=== PATIENT | female | born 1990 | race Caucasian/White ===

== ENCOUNTER 2017-07-06 20:49 | Emergency (ER) | payer OTHER, SELFPAY ==
[2017-07-06 20:51] VITALS: BP 131/77; PULSE 102; RESP 17; TEMP 37.1; O2SAT 99; BMI 33.5
[2017-07-06 21:35] LABS: Absolute Lymphocyte Count 3.49 X10^3/ul (0.83-4.51); Basophil# 0.06 X10^3/uL; Basophil% 0.5 % (0-1); Eosinophil# 0.33 X10^3/uL; Eosinophils% 2.6 % (0-5); Hematocrit 38.2 % (37-47); Hemoglobin 13.2 g/dl (12.0-15.0); Lymphocyte # 3.49 X10^3/ul (4.0); Lymphocyte % 27.9 % (19-41); Mean Corp Hgb Conc 34.6 g/gl (32-36); Mean Corpuscular Hgb 31.4 pg (27.0-32.0); Monocyte# 0.57 X10^3/uL; Monocyte% 4.6 % (0-10); Neutrophil # 8.04 X10^3/uL (2.7-7.7); Neutrophil % 64.2 % (47-70); Platelet Count 345 K/mm3 (150-450); RBC Distribution Width CV 12.4 % (11.6-14.6); White Blood Count 12.5 K/mm3 (4.4-11.0)
[2017-07-06 21:36] LABS: POSITIVE COUNT NO; POSITIVE DIFFERENTIAL NO; POSITIVE MORPHOLOGY NO
--- NOTE | 2017-07-06 21:43 | US_ITS ---
STUDY: FIRST TRIMESTER OBSTETRICAL ULTRASOUND REASON FOR EXAM: Female, 27 years old. , pain LMP: June 02, 2017 TECHNIQUE: Transverse and longitudinal imaging of the pelvis was obtained transvaginally using real-time ultrasound. PRIOR STUDY: None. FINDINGS: There is visualization of a single gestational sac in a normal intrauterine position. The mean sac diameter (MSD) measures 5.7 mm, indicating an estimated gestational age (EGA) of 5 weeks, 1 days. The gestational sac shape is within normal limits. A yolk sac is faintly visualized. The yolk sac measures 1.1 mm. There is no demonstrated embryonic pole. The estimated gestation age (EGA) by LMP is 4 weeks, 6 days. The estimated date of delivery (CHELLE) by LMP is March 09, 2018. The estimated gestation age (EGA) by US is 5 weeks, 1 days. The estimated date of delivery (CHELLE) by US is March 07, 2018. The uterus measures 9.4 x 4.5 x 6.3 cm. There is no demonstrated uterine fibroid. The cervix is closed. The right ovary measures 2.6 x 1.6 x 2.1 cm. There is no right ovarian cyst. There is no visualized right adnexal mass or complex lesion. The left ovary measures 3.7 x 2.2 x 2.3 cm. There is a hypoechoic mass in the left ovary measuring 2.7 x 1.6 x 1.7 cm. There is no visualized left adnexal mass or complex lesion. There is minimal fluid in the cul de sac. US/Transvaginal w/Preg US IMPRESSION: There is a small gestational sac seen in the endometrium with mean sac size of 5.7 mm. An embryonic pole is not visualized, which is within normal limits at this small sac size. There is a corpus luteum cyst in the left ovary measuring 2.7 cm in largest diameter. There is minimal fluid in the pelvis. Electronically Signed: Aliya Meza MD at 23:05 EDT Tel Direct: [phone], Service support ,
--- NOTE | 2017-07-06 21:46 | ED.DCSUM_ITS ---
- ER Visit Summary Date of Service: 07/06/17 Chief Complaint: Left lower quadrant abdominal pain History of Present Illness: The patient is a 27 F resents to the emergency department with left lower quadrant abdominal pain. Patient states that over the past 5-7 days, she has had gradual worsening cramping in her left lower quadrant. She states it worse at night. It is woken up from sleep. She took a test today and was positive. She denies any history of prior ectopic, but states is what she was concerned about. The pain does radiate into her upper back especially when she lays flat. She denies any fevers or chills. She has had no urinary symptoms. She has had nausea without vomiting. Patient has been once before but did not deliver. She does have an appointment with Dr. Annita Saenz on , both her symptoms did not want to wait. Physical Examination: Vital signs reviewed General: Well-nourished, well-developed Head: Normocephalic, atraumatic Eyes: Pupils equal and reactive, extraocular muscles intact Neck, supple, no lymphadenopathy Heart: Regular rate and rhythm Respiratory: No distress, clear bilaterally Abdomen: Soft, mildly tender in the left lower quadrant, nondistended, no peritoneal signs Back: Nontender Extremities: Nontender, no edema, no cords Skin: Normal color no rash Neuro: Alert and oriented, no focal or lateralizing deficits Test Results: [] Emergency Department Course and Treatment: Labs are obtained. The patient was given IV fluids. Her quant was elevated at 2200. Patient underwent ultrasound. There is evidence of intrauterine gestational sac. There is a corpus luteum cyst and mild free fluid in the pelvis. I do feel that the cyst is likely what is causing her pain. There is no evidence of ruptured ectopic or complex mass. Her reevaluation is unremarkable. I do feel that this patient is safe for outpatient therapy. I did patient financial counselor her though that if her pain worsens or anything changes she needs to return immediately for reevaluation. She is comfortable with this plan of care and will be discharged home. Treatment Plan: [] Disposition: Discharge Impression: 1. Intrauterine 2. Left corpus luteum cyst This note was generated with [employer] dictation software. It may contain incorrect words, spelling, and punctuation that were not noted in review of the chart prior to signing ED Disposition - Plan for ED Patient: Chief Complaint: Abd Pain Instructions: ED Abdominal Pain Rule Out Ectopic Prescriptions: Pnv No.122/Iron/Folic Acid [ Multi Tablet] 1 ea PO DAILY #90 tab Referrals: Brent Joya DO [STAFF PHYSICIAN] -
[2017-07-06 21:56] LABS: Anion Gap 7 (5-15); BUN 7 mg/dL (7-18); BUN/Creat Ratio 9.7 RATIO (10-20); Calcium,Total 9.2 mg/dL (8.5-10.1); Chloride 109 mmol/L (98-107); Creatinine, Serum 0.72 mg/dL (0.55-1.02); EST Glomerular Filtration Rate 104 mL/min (>60); Est Glom Filt Rate - Afr Amer 125 mL/min (>60); Estimated Creatinine Clearance 88.56 ml/min; Glucose 86 mg/dL (74-106); Potassium 3.7 mmol/L (3.5-5.1); Sodium Level 139 mmol/L (136-145)
[2017-07-06 21:57] LABS: Bacteria 0 SEEN /hpf (None Seen); Mucous, Urine 0 SEEN /hpf (<or=2+); White Blood Cells 0 SEEN /hpf (0-5)
[2017-07-06] MEDS: 0.9% Normal Saline 1,000 ML 1000 ML IV (22:13)
[2017-07-06 22:16] LABS: Color, Urine Yellow (Yellow); Glucose, Dipstick Normal (Normal); Ketone-Dipstick Negative (Negative); Leukocyte Esterase-Dipstick Negative /ul (Negative); Nitrite-Dipstick Negative (Negative); Occult Blood-Urine 10 /ul (Negative); Protein-Dipstick 15 mg/dl (Negative); Urine Bilirubin Dipstick Negative (Negative); Urine Clarity Clear (Clear); Urine Urobilinogen Normal (Normal)
[2017-07-06 22:16] LABS: hCG Titer Quant., Serum 2232 mIU/mL (<9 non-preg)
[2017-07-06 22:23] LABS: Red Blood Cells-Urine 0-5 SEEN /hpf (0-5); Squamous Epithelial Cells - UA 0-5 SEEN /hpf (5-10)
[2017-07-06 23:45] VITALS: PULSE 72; RESP 18; O2SAT 99
== END 2017-07-06 23:45 | disposition home or self-care (01) ==
PROVIDERS: Emergency Provider Emergency Medicine; Family Provider Family Medicine; PCP Family Medicine
DX: O34.81 Maternal care for other abnormalities of pelvic organs, first trimester (principal); N83.12 Corpus luteum cyst of left ovary; Z3A.01 Less than 8 weeks gestation of pregnancy
CPT/HCPCS: 76817; 80048; 81001; 84702; 85025; 86900; 96360; 99282; J7030; A4216

== ENCOUNTER 2019-11-22 18:02 | Inpatient (IN) | payer OTHER, SELFPAY ==
[2019-11-22 18:04] VITALS: BP 119/78; PULSE 79; RESP 16; TEMP 36.3; O2SAT 98; BMI 35.9
[2019-11-22 18:14] VITALS: BP 109/73; PULSE 90; RESP 18; O2SAT 99
--- NOTE | 2019-11-22 18:27 | ED.DCSUM_ITS ---
History of Present Illness Chief Complaint: Abd Pain Informant: Patient Onset: Hours - 2 hours Context: Sudden Onset Timing: Waxes and wanes Current Severity: Moderate Maximum Severity: Moderate Narrative: Patient presents with a rather abrupt onset of abdominal and back pain 2 hours ago. She points to the left lower quadrant and wraps her hand around to the left side of her back. She is also wraps across to the right lower abdomen. She feels nausea but has not vomited. No recent urinary symptoms. No history of kidney stones in her personally. She did recently take a test that was negative. Past Medical History - Allergies and Home Meds Allergies/Adverse Reactions: Allergies sulfamethoxazole [From Bactrim] Allergy (Verified 11/22/19 18:04) Vomiting trimethoprim [From Bactrim] Allergy (Verified 11/22/19 18:04) Vomiting Primary Care Physician: Ibeth Elizondo COMPLIANCE TESTER, COMPLIANCE TESTER-C [Primary Care Provider] - Past Medical History: - - Sports induced asthma Surgical History: tonsillectomy Lives: With Family Smoking Status: Current some day smoker Review of Systems General: Denies: Chills, Fever Eyes: Denies: Visual changes - bilaterally ENT: Denies: Bilateral ear pain Cardiovascular: Denies: Chest pain Respiratory: Denies: Dyspnea, Cough Gastrointestinal: Reports: Abdominal pain, Nausea. Denies: Vomiting Musculoskeletal: Reports: Back pain Skin: Denies: Rash Neurological: Denies: Headache Hematologic: Denies: Easy bruising, Easy bleeding Allergy: Denies: Uticaria Physical Exam Vital Signs/Narrative: Vital Signs Temp Pulse Resp BP Pulse Ox 11/22/19 18:14 90 18 109/73 99 11/22/19 18:04 97.4 F L 79 16 119/78 98 Inital Vital Signs reviewed: Yes General: Well nourished, Well developed Head: Normocephalic ENT: Moist mucous membranes Neck: Supple Cardiovascular: Regular rate, Regular rhythm Respiratory: No distress, CTA bilaterally Abdomen: Soft, Tender - Left-sided tenderness to palpation., Hypoactive bowel sounds. Negative for: Guarding, Rebound tenderness Back: Negative for: CVA tenderness Extremities: Nontender Skin: Normal color Neurological: Alert, Oriented x3 Psychological: Normal affect Diagnostic/Tx/Re-eval Impressions Abdomen/Pelvis CT 11/22/19 19:30 IMPRESSION: 1. Fatty stranding noted in the region of the pancreatic tail, suspicious for pancreatitis. 2. Colonic diverticulosis with no evidence of associated diverticulitis. 3. There is no evidence of free intra-abdominal or intrapelvic air or fluid. Electronically Signed: Jesús Denis MD at 19:55 EDT , Service support , 11/22/19 19:30 Abdomen/Pelvis without Cont [CT] Stat Laboratory Results 11/22/19 11/22/19 11/22/19 18:35 18:50 18:50 WBC 11.9 H RBC 4.31 Hgb 12.9 Hct 39.1 MCV 90.7 MCH 29.9 MCHC 33.0 RDW Std Deviation 38.9 RDW Coeff of Dave 11.8 Plt Count 392 MPV 10.7 Immature Gran % (Auto) 0.300 Neut % (Auto) 74.3 H Lymph % (Auto) 17.3 L Cross % (Auto) 6.0 Eos % (Auto) 1.3 Baso % (Auto) 0.8 Absolute Neuts (auto) 8.9 H Absolute Lymphs (auto) 2.06 Nucleated RBC % 0 Sodium 141 Potassium 4.6 Chloride 109 H Carbon Dioxide 29.0 Anion Gap 3 L BUN 10 Creatinine 0.80 Estim Creat Clear Calc 78.30 Est GFR (MDRD) Af Amer 109 Est GFR (MDRD) Non-Af 90 BUN/Creatinine Ratio 12.5 Glucose 90 Calcium 9.0 Total Bilirubin Direct Bilirubin AST ALT Alkaline Phosphatase Total Protein Albumin Globulin Lipase Serum , Qual Urine Color Yellow Urine Clarity Clear Urine pH 5.0 Ur Specific [place] 1.025 Urine Protein Negative Urine Glucose (UA) Normal Urine Ketones Negative Urine Occult Blood 10 H Urine Nitrite Negative Urine Bilirubin Negative Urine Urobilinogen Normal Ur Leukocyte Esterase 25 H Urine RBC 0 SEEN Urine WBC 0-5 SEEN Ur Squamous Epith Cells 5-10 SEEN Urine Bacteria 1+ Urine Mucus 0 SEEN 11/22/19 11/22/19 11/22/19 18:50 18:50 18:50 WBC RBC Hgb Hct MCV MCH MCHC RDW Std Deviation RDW Coeff of Dave Plt Count MPV Immature Gran % (Auto) Neut % (Auto) Lymph % (Auto) Cross % (Auto) Eos % (Auto) Baso % (Auto) Absolute Neuts (auto) Absolute Lymphs (auto) Nucleated RBC % Sodium Potassium Chloride Carbon Dioxide Anion Gap BUN Creatinine Estim Creat Clear Calc Est GFR (MDRD) Af Amer Est GFR (MDRD) Non-Af BUN/Creatinine Ratio Glucose Calcium Total Bilirubin 0.20 Direct Bilirubin 0.08 AST 15 ALT 18 Alkaline Phosphatase 67 Total Protein 7.4 Albumin 3.8 Globulin 3.6 Lipase 2607 H Serum , Qual NEGATIVE Urine Color Urine Clarity Urine pH Ur Specific [place] Urine Protein Urine Glucose (UA) Urine Ketones Urine Occult Blood Urine Nitrite Urine Bilirubin Urine Urobilinogen Ur Leukocyte Esterase Urine RBC Urine WBC Ur Squamous Epith Cells Urine Bacteria Urine Mucus - Medical Decision Making Patient was initially just given Toradol and Zofran as she was declining any narcotics. CT scan does reveal some peripancreatic stranding. In light of this lipase is added and is elevated consistent with pancreatitis. At this time patient has agreed to further pain medication will be given a dose of morphine. I will speak with hospitalist regarding admission. ED Disposition - Plan for ED Patient: Disposition: [facility] Diagnosis: Pancreatitis Referrals: Ibeth Elizondo COMPLIANCE TESTER, COMPLIANCE TESTER-C [Primary Care Provider] -
[2019-11-22] MEDS: 0.9% Normal Saline 1,000 ML 150 ML IV (18:46)
[2019-11-22] MEDS: Ketorolac 30 MG/ML Syringe IV (18:46)
[2019-11-22] MEDS: Ondansetron 4 MG/2 ML Vial IV ×2 (18:46→21:39)
[2019-11-22 18:57] LABS: Absolute Lymphocyte Count 2.06 X10^3/uL (0.83-4.51); Absolute Neutrophil Count 8.9 X10^3/uL (2.0-7.7); Basophil# 0.09 X10^3/uL; Basophil% 0.8 % (0-1); Eosinophil# 0.15 X10^3/uL; Eosinophils% 1.3 % (0-5); Hematocrit 39.1 % (37-47); Hemoglobin 12.9 g/dL (12.0-15.0); Lymphocyte # 2.06 X10^3/ul (4.0); Lymphocyte % 17.3 % (19-41); Mean Corpuscular Hgb 29.9 pg (27.0-32.0); Mean Corpuscular Volume 90.7 fL (81-99); Mean Platelet Vol. 10.7 fl (6.2-12.0); Monocyte# 0.71 X10^3/uL; NRBC Flagged by Analyzer 0 % (0-5); Neutrophil # 8.85 X10^3/uL (2.7-7.7); Neutrophil % 74.3 % (47-70); Platelet Count 392 K/mm3 (150-450); RBC Distribution Width CV 11.8 % (11.6-14.6); RBC Distribution Width SD 38.9 fl (35.1-43.9); Red Blood Count 4.31 M/mm3 (4.2-5.4); White Blood Count 11.9 K/mm3 (4.4-11.0)
[2019-11-22 19:05] LABS: Internal QC Validated? YES +Cl - CLEAR BKGD; Pregnancy, Serum, hCG Quali. NEGATIVE Negative
[2019-11-22 19:11] LABS: Anion Gap 3 (5-15); BUN 10 mg/dL (7-18); BUN/Creat Ratio 12.5 RATIO (10-20); Chloride 109 mmol/L (98-107); EST Glomerular Filtration Rate 90 mL/min (>60); Est Glom Filt Rate - Afr Amer 109 mL/min (>60); Glucose 90 mg/dL (74-106); Potassium 4.6 mmol/L (3.5-5.1); Sodium Level 141 mmol/L (136-145)
[2019-11-22 19:13] LABS: Color, Urine Yellow (Yellow); Glucose, Dipstick Normal (Normal); Ketone-Dipstick Negative (Negative); Leukocyte Esterase-Dipstick 25 /ul (Negative); Mucous, Urine 0 SEEN /hpf (<or=2+); Nitrite-Dipstick Negative (Negative); Occult Blood-Urine 10 /ul (Negative); Protein-Dipstick Negative (Negative); Red Blood Cells-Urine 0 SEEN /hpf (0-5); Specific Gravity, Urine 1.025 (1.002-1.030); Urine Bilirubin Dipstick Negative (Negative); Urine Clarity Clear (Clear); Urine Urobilinogen Normal (Normal)
--- NOTE | 2019-11-22 19:30 | CT_ITS ---
STUDY: CT ABDOMEN AND PELVIS WITHOUT CONTRAST REASON FOR EXAM: Female, 29 years old. patient complains of abdomen pain and back pain RADIATION DOSAGE (If Supplied By Facility): CTDIvol = ( 13.33 ) mGy, DLP = ( 657.27 ) mGycm TECHNIQUE: Transaxial images were obtained from the dome of the diaphragm to the symphysis pubis without oral contrast, and without intravenous contrast. Sagittal and coronal images were reconstructed. Individualized dose optimization techniques were used for this CT. COMPARISON: None. FINDINGS: The visualized lung bases are unremarkable. The visualized portions of the heart are within normal limits. Normal liver. Normal gallbladder and extrahepatic biliary system. Normal spleen. There is fatty stranding in the region of the pancreatic tail. Normal bilateral adrenal glands. Normal right kidney. Normal left kidney. Normal visualized stomach. Normal small intestine. There is colonic diverticulosis. There is no evidence of associated diverticulitis. The appendix is visualized and appears normal. Normal abdominal aorta. Normal inferior vena cava. Normal retroperitoneum. Normal urinary bladder. Normal abdominal wall. Normal osseous structures. CT/Abdomen/Pelvis without Cont IMPRESSION: 1. Fatty stranding noted in the region of the pancreatic tail, suspicious for pancreatitis. 2. Colonic diverticulosis with no evidence of associated diverticulitis. 3. There is no evidence of free intra-abdominal or intrapelvic air or fluid. Electronically Signed: Jesús Denis MD at 19:55 EDT , Service support ,
[2019-11-22 19:33] LABS: Bacteria 1+ /hpf (None Seen); Squamous Epithelial Cells - UA 5-10 SEEN /hpf (5-10)
[2019-11-22 19:34] LABS: White Blood Cells 0-5 SEEN /hpf (0-5)
[2019-11-22 20:10] VITALS: BP 111/89; PULSE 74; RESP 15; O2SAT 100
[2019-11-22 20:38] LABS: AST(SGOT) 15 U/L (15-37); Alanine Aminotransfer ALT/SGPT 18 U/L (13-56); Albumin, Serum 3.8 g/dL (3.2-5.0); Alkaline Phosphatase 67 U/L (45-117); Bilirubin, Direct 0.08 mg/dL (0.00-0.30); Globulin 3.6 g/dL (2.2-4.2); Protein, Total 7.4 g/dL (6.4-8.2)
[2019-11-22 21:01] LABS: Lipase 2607 U/L (73-393)
[2019-11-22] MEDS: Morphine 4 MG/ML Syringe IV ×2 (21:38→23:48)
[2019-11-22] MEDS: 0.9% Normal Saline 1,000 ML 999 ML IV ×2 (21:38→22:57)
[2019-11-22 21:47] VITALS: BP 134/79; PULSE 74; RESP 15; TEMP 36.8; O2SAT 98
--- NOTE | 2019-11-22 21:50 | PCM.HP.STD ---
Problem List (1) Pancreatitis Status: Acute (2) Exercise-induced asthma Status: Chronic (3) Vapes nicotine containing substance Status: Chronic (4) Tobacco use Status: Chronic (5) Obesity (BMI 30-39.9) Status: Chronic History of Present Illness Date of Admission: 11/22/19 Chief Complaint: Abdominal pain, back pain The patient is a 29 y/o F w/ PMHx: Obesity, Tobacco use, Exercise-induced Asthma who presents to the [facility] ED on 11/22/19 with history of sudden onset sharp stabbing 9 of 10 in severity initially left lower quadrant abdominal discomfort with radiation to bilateral flanks eventually wrapping around towards her lower chest bilaterally with nausea without emesis with last bowel movement approximately 2 days prior noted to be normal with no recent diarrhea however not improving with last meal intake lunch on day of ED presentation noted to be Rubio's, not improving prompting eventual ED presentation. In the ED patient did note that she checked a test at home secondary to concerns that she potentially was however this was negative. She notes following pain regimen in the ED her discomfort improved to 7 out of 10 in severity. She notes the discomfort is even worsened by movements. She states she has been unable to eat anything or have any oral intake since. In the ED upon evaluation on examination patient with significant right upper quadrant and epigastric discomfort with palpation. Work-up in the ED included T 97.4, heart 79, BP 119/78, respiratory rate 16, 98% on room air, WBC 11.9, hemoglobin 12.9, platelet 392 with left shift, CMP with chloride 109 otherwise not marked appearing, unremarkable liver function studies, lipase 2607, negative serum testing, urinalysis only notable for elevated specific gravity 1.025 as well as occult blood 10, leukocyte esterase 25, negative nitrite, squamous epithelial cells 5-10, 1+ urine bacteria, CT abdomen and pelvis with fatty stranding noted in the region of the pancreatic tail suspicious for pancreatitis, colonic diverticulosis with no evidence of associated diverticulitis, no evidence of free air or intra-abdominal or intrapelvic air or fluid within noted normal gallbladder and extrahepatic biliary system. In the ED patient ministered Zofran, morphine, Toradol as well as normal saline. Past Medical History Past Medical History (Chronic Problems): Chronic Problems Exercise-induced asthma (Chronic) Vapes nicotine containing substance (Chronic) Tobacco use (Chronic) Obesity (BMI 30-39.9) (Chronic) Allergies sulfamethoxazole [From Bactrim] Allergy (Verified 11/22/19 18:04) Vomiting trimethoprim [From Bactrim] Allergy (Verified 11/22/19 18:04) Vomiting Home Medications: Ambulatory Orders Medication Instructions Recorded NK 11/22/19 Surgical History: tonsillectomy, - - Tonsillectomy, bilateral ear tube placements. Psychiatric History: No pertinent psych hx FIBER DESIGNER History: No pertinent FIBER DESIGNER history Lives: With Family - Patient currently resides with her mother and stepfather with her daughter as well. Smoking Status: Former smoker - Patient notes quitting cigarette tobacco usage specifically approximately 2 to 3 years prior when she became with her daughter and has since has been occasionally vaping. When the patient was smoking she noted starting when she was approximately 16 years old with half pack per day cigarette tobacco usage until quitting as noted and transitioning to vaping occasionally. Tobacco Use: Vapor - Patient notes occasional vape usage but has lessened over time. Alcohol: Rare Drugs: None - *Family History Paternal History Items: Diabetes, Hypertension, - - Patient notes paternal family history of hypertension and diabetes. Maternal History Items: COPD, - - Patient notes a maternal family history of chronic COPD, tobacco use concurrently. Review of Systems Constitutional: Reports: Anorexia, Malaise, Weakness, Fatigue. Denies: Chills, Fever, Weight Change HEENT: Reports: - - Recent corneal abrasion to the left eye secondary to facial cleaning product, ongoing irritation but improving.. Denies: Head Aches, Sinus Congestion, Sinus Drainage Cardiovascular: Denies: Chest Pain, Chest Pressure, Palpitations Respiratory: Denies: Cough, Shortness of Breath, Shortness of breath at rest, Shortness of breath upon exertion, Sputum production Gastrointestinal: Reports: Abdominal Pain, Nausea. Denies: Constipation, Diarrhea, Vomiting Genitourinary: Denies: Dysuria Musculoskeletal: Reports: Back Pain. Denies: Joint Pain, Joint Tenderness Skin: Denies: Rash, Wounds Neurological: Denies: Numbness, Tingling, Focal weakness Psychiatric: Denies: Anxiety, Depression, Homicidal Ideations, Suicidal Ideations Hematologic/ Lymphatic: Denies: Easy Bruising, Easy Bleeding VTE Information - Inpt Only VTE Present on Admission: No VTE Mechan Device Prophylaxis: None VTE Pharm Prophylaxis ordered?: No Reason prophylaxis not ordered:: Treatment Not Indicated Patient Problems: Active and Suspected Problems Pancreatitis (Acute) Subjective: Patient seated upright in the ED bed, fatigued and uncomfortable appearing, worse with movement and with examination. Objective: Physical Examination: General: awake, alert, oriented x 3 and cooperative, seated upright in the ED bed, no obvious distress initially, discomfort with examination evident. Skin: normal color, turgor, no icterus, cyanosis. HEENT: AT/NC, EOMI, PERRLA, moderately dry MM, no carotid bruits or JVD noted. Lungs: CTA bilaterally, moderate effort, mild decrease BL bases, no rales, ronchi or wheezing. Heart: Regular rate and rhythm; no gallop, rub audible. Abdomen: soft, notable discomfort with right upper quadrant and epigastric palpation, positive rebound with right upper quadrant palpation, ND, moderately hyperactive bowel sounds, difficulty assessing HSM secondary to discomfort with palpation. Extremities: no cyanosis, clubbing, or edema. Neurological: patient awake, alert, oriented x 3; cognitive function intact; pupils equally reactive to light and accomodation; cranial nerves II-XII grossly normal, moving all 4 extremities, no focal deficits, strength mildly to moderately global decrease secondary to acute complaints. Psychiatric: affect appears fatigued and notably uncomfortable following examination as noted, no acute evidence of depressive or anxiety feelings. - Physical Exam Vitals/I&O's: Vital Signs Temp Pulse Resp BP Pulse Ox 98.3 F 74 15 134/79 H 98 11/22/19 21:47 11/22/19 21:47 11/22/19 21:47 11/22/19 21:47 11/22/19 21:47 Oxygen Delivery Method Room Air Weight: 190 lb Body Mass Index (BMI) 35.9 Laboratory Results 11/22/19 18:35: Urine Color Yellow, Urine Clarity Clear, Urine pH 5.0, Ur Specific [place] 1.025, Urine Protein Negative, Urine Glucose (UA) Normal, Urine Ketones Negative, Urine Occult Blood 10 H, Urine Nitrite Negative, Urine Bilirubin Negative, Urine Urobilinogen Normal, Ur Leukocyte Esterase 25 H, Urine RBC 0 SEEN, Urine WBC 0-5 SEEN, Ur Squamous Epith Cells 5-10 SEEN, Urine Bacteria 1+, Urine Mucus 0 SEEN 11/22/19 18:50: WBC 11.9 H, RBC 4.31, Hgb 12.9, Hct 39.1, MCV 90.7, MCH 29.9, MCHC 33.0, RDW Std Deviation 38.9, RDW Coeff of Dave 11.8, Plt Count 392, MPV 10.7, Immature Gran % (Auto) 0.300, Neut % (Auto) 74.3 H, Lymph % (Auto) 17.3 L, [place] % (Auto) 6.0, Eos % (Auto) 1.3, Baso % (Auto) 0.8, Absolute Neuts (auto) 8.9 H, Absolute Lymphs (auto) 2.06, Nucleated RBC % 0 11/22/19 18:50: Sodium 141, Potassium 4.6, Chloride 109 H, Carbon Dioxide 29.0, Anion Gap 3 L, BUN 10, Creatinine 0.80, Estim Creat Clear Calc 78.30, Est GFR (MDRD) Af Amer 109, Est GFR (MDRD) Non-Af 90, BUN/Creatinine Ratio 12.5, Glucose 90, Calcium 9.0 11/22/19 18:50: Serum , Qual NEGATIVE 11/22/19 18:50: Total Bilirubin 0.20, Direct Bilirubin 0.08, AST 15, ALT 18, Alkaline Phosphatase 67, Total Protein 7.4, Albumin 3.8, Globulin 3.6 11/22/19 18:50: Lipase 2607 H Current Medications Sodium Chloride () 1,000 mls @ 150 mls/hr IV .[id number] [facility] Last Admin: 11/22/19 18:46 Dose: 150 mls/hr Documented by: Sodium Chloride () 1,000 mls @ 999 mls/hr IV .Q1H1M ONE Stop: 11/22/19 22:24 Last Admin: 11/22/19 21:38 Dose: 999 mls/hr Documented by: Assessment/Plan All Active Problems Pancreatitis (Acute) The patient is a 29 y/o F w/ PMHx: Obesity, Tobacco use, Exercise-induced Asthma who presents to the [facility] ED on 11/22/19 with history of sudden onset sharp stabbing 9 of 10 in severity initially left lower quadrant abdominal discomfort with radiation to bilateral flanks eventually wrapping around towards her lower chest bilaterally with nausea without emesis with last bowel movement approximately 2 days prior noted to be normal. 1. Acute pancreatitis w/ abdominal pain, N/V: Will admit to [facility], maintain on IVFs, NPO, PPI, IV/po pain control, trend lipase, CMP. Will obtain RUQ US to further assess although CT not marked appearing but noted discomfort with palpation of the right upper quadrant as well as epigastric region, FLP, further assess for EtOH consumption risk as etiology for pancreatitis although denies with level pending and UDS pending. 2. History of exercise-induced asthma: Noted usage of inhaler in her youth with sports, no active complaints but ongoing tobacco use, will have PRN albuterol if necessary. 3. Tobacco Abuse: Encouraged cessation of vaping products, transitioned approximately 2 years prior to vaping from previous cigarette tobacco usage, inpatient consultation per RT, NR if desired. 4. Obesity: Weight loss and lifestyle changes encouraged. 5. DVT prophylaxis: Low risk, encourage ambulation. Inpatient E&M: 53970 Init Hosp L3
[2019-11-22 22:08] VITALS: BP 134/79; PULSE 74; RESP 15; TEMP 36.8; O2SAT 98
[2019-11-22 22:48] LABS: Alcohol, Blood (Medical)-Serum < 3.0 mg/dL
[2019-11-22 22:51] VITALS: BP 119/58; PULSE 64; RESP 16; TEMP 36.6; O2SAT 100
[2019-11-22 22:55] VITALS: BMI 33.7
[2019-11-22 23:07] VITALS: BMI 33.7
[2019-11-22 23:07] LABS: Amphetamine Urine VISTA NEGATIVE (<1000 ng/mL); Barbiturate Urine VISTA NEGATIVE (< 200 ng/mL); Benzodiazepine Urine VISTA NEGATIVE (< 200 ng/mL); Cocaine Urine VISTA NEGATIVE (< 300 ng/mL); Ecstacy Urine VISTA NEGATIVE (< 500 ng/mL); Methadone Urine VISTA NEGATIVE (< 300 ng/mL); PCP Urine VISTA NEGATIVE (< 25 ng/mL); THC Urine VISTA NEGATIVE (< 50 ng/mL); Vista UDS pH Range 5
[2019-11-22] MEDS: 0.9% Saline Lock 10 ML Syringe IV (23:48)
[2019-11-23] MEDS: 0.9% Normal Saline 1,000 ML 999 ML IV (00:19)
[2019-11-23] MEDS: Neomycin/Polymyxin/Dexameth 5ML OPTH.BTL 1 DRP LEFT EYE ×8 (00:19→20:49)
[2019-11-23] MEDS: 0.9% Normal Saline 1,000 ML 150 ML IV ×2 (01:20→06:56)
[2019-11-23] MEDS: Ondansetron 4 MG/2 ML Vial IV (03:59)
[2019-11-23] MEDS: 0.9% Saline Lock 10 ML Syringe IV ×5 (03:59→20:47)
[2019-11-23 04:04] VITALS: BP 113/51; PULSE 69; RESP 16; TEMP 36.6; O2SAT 100
[2019-11-23] MEDS: Ketorolac 30 MG/ML Syringe IV ×3 (05:37→20:48)
--- NOTE | 2019-11-23 05:55 | US_ITS ---
STUDY: ABDOMINAL ULTRASOUND - RIGHT UPPER QUADRANT REASON FOR VISIT: Female, 29 years old pancreatitis -- GENERAL ABD PAIN X 1 DAY TECHNIQUE: Ultrasound evaluation of the right upper quadrant was performed with real-time and static brown-scale imaging. TECHNICAL QUALITY: Adequate. COMPARISON: None. FINDINGS: Liver: The liver measures 17.9 cm. There is increased echogenicity consistent with mild degree of fatty infiltration. The bile ducts are within normal limits. There is hepatic color flow. The direction of portal flow is hepatopetal. There is no demonstrated mass lesion. Gallbladder: Normal distended gallbladder. The gallbladder wall measures 2.9 mm. There is a negative sonographic Llamas''s sign. There is no pericholecystic fluid. There are no gallstones. Common Bile Duct (C.B.D.): The common bile duct measures 6.6 mm. Pancreas: Normal size of the head, body and tail of the pancreas. There is increased echogenicity of the pancreas. There is no demonstrated pancreatic mass or cyst. Right Kidney: Normal size of the right kidney. The right kidney measures 11.3 cm x 5.9 cm x 6.0 cm. Normal renal cortex. The right cortex measures 2.2 cm. There is no demonstrated renal mass or cyst. There is no right hydronephrosis. US/Abdomen Limited IMPRESSION: Mild degree of fatty infiltration of the liver. Electronically Signed: Franco Flores, at 10:41 EDT , Service support ,
[2019-11-23 06:35] LABS: Absolute Neutrophil Count 4.9 X10^3/uL (2.0-7.7); Basophil# 0.05 X10^3/uL; Basophil% 0.7 % (0-1); Eosinophil# 0.11 X10^3/uL; Eosinophils% 1.4 % (0-5); Hematocrit 31.2 % (37-47); Hemoglobin 10.3 g/dL (12.0-15.0); Lymphocyte % 27.5 % (19-41); Mean Corpuscular Hgb 30.2 pg (27.0-32.0); Mean Corpuscular Volume 91.5 fL (81-99); Mean Platelet Vol. 10.9 fl (6.2-12.0); Monocyte# 0.46 X10^3/uL; NRBC Flagged by Analyzer 0 % (0-5); Neutrophil # 4.89 X10^3/uL (2.7-7.7); Neutrophil % 64.1 % (47-70); Platelet Count 291 K/mm3 (150-450); RBC Distribution Width CV 11.9 % (11.6-14.6); RBC Distribution Width SD 39.9 fl (35.1-43.9); Red Blood Count 3.41 M/mm3 (4.2-5.4); White Blood Count 7.6 K/mm3 (4.4-11.0)
[2019-11-23] MEDS: Morphine 4 MG/ML Syringe IV (06:53)
[2019-11-23 07:13] LABS: AST(SGOT) 13 U/L (15-37); Alanine Aminotransfer ALT/SGPT 15 U/L (13-56); Albumin, Serum 2.8 g/dL (3.2-5.0); Alkaline Phosphatase 53 U/L (45-117); Anion Gap 3 (5-15); BUN 8 mg/dL (7-18); BUN/Creat Ratio 15.7 RATIO (10-20); Calcium,Total 7.1 mg/dL (8.5-10.1); Chloride 115 mmol/L (98-107); Cholesterol 100 mg/dL (200); Creatinine, Serum 0.51 mg/dL (0.55-1.02); EST Glomerular Filtration Rate 151 mL/min (>60); Est Glom Filt Rate - Afr Amer 182 mL/min (>60); Estimated Creatinine Clearance 128.73 ml/min; Globulin 2.7 g/dL (2.2-4.2); Glucose 81 mg/dL (74-106); High Density Lipoprotein 28 mg/dL; Lipase 1218 U/L (73-393); Potassium 3.7 mmol/L (3.5-5.1); Protein, Total 5.5 g/dL (6.4-8.2); Sodium Level 142 mmol/L (136-145); Triglycerides 143 mg/dL; Very Low Density Lipoprotein 29 mg/dL (5-40)
--- NOTE | 2019-11-23 09:15 | CASEMGMT ---
RN CM Face to Face with patient for initial transition planning/care coordination assessment. RN CM introduced self and role at [facility] [place]. Patient sitting in chair, alert and oriented. Patient willing to participate in assessment and is able to answer all questions appropriately. Care providers, pharmacy, and demographics verified. Patient wishes to discharge home, denies need for home health at this time. Patient states he has no further needs or concerns at this time. CM to follow for discharge planning needs that may arise. PCP: Mikhail PATTERN SCRATCHER Specialists: None Preferred Pharmacy: [facility] Insurance: [employer] Prescription Benefit: yes Living Will/HPOA: none LNOK: Mother, step father, father Living Arrangements: Patient lives with mother, step father, and 2 yo child in a 2 story house. Patient is independent and able to ambulate stairs Transportation: self, family DME/HHC: Patient denies DME or previous HHC. Disposition Plan: Patient to discharge home with family support and follow-up plans in place. Preethi CORTES, RN, CM
[2019-11-23 09:30] VITALS: BP 106/52; PULSE 64; RESP 16; TEMP 37; O2SAT 100
--- NOTE | 2019-11-23 11:36 | PCM.PN.HOSP ---
Patient Problems: Active and Suspected Problems Pancreatitis (Acute) Reason for Visit: Acute pancreatitis Subjective: Patient is a 29-year-old lady admitted with abdominal pain and assessment of acute pancreatitis made admitted to regular nursing floor for further management Objective: GENERAL: cooperative HEENT: Atraumatic; EYES; Anicteric, Normal Conjunctiva NECK; supple, normal thyroid, RESPIRATORY: Diminished to auscultation CARDIOVASCULAR: Regular S1 S2, GI: soft, normoactive bowel sounds, : No Renal angle tenderness; EXTREMITIES: No edema, no clubbing, MUSCULOSKELETAL: no muscle waisting NEURO: Awake; no lateralizing signs. SKIN: No Rash PSYCH; Flat affect Vitals/I&O's: Vital Signs Temp Pulse Resp BP Pulse Ox 98.6 F 64 16 106/52 L 100 11/23/19 09:30 11/23/19 09:30 11/23/19 09:30 11/23/19 09:30 11/23/19 09:30 Oxygen Delivery Method Room Air Weight: 83.6 kg Body Mass Index (BMI) 33.7 Intake and Output for Last 24 Hours 11/21/19 11/22/19 11/23/19 23:59 23:59 23:59 Intake Total 2692.75 / 2692.75 2919.75 / 2919.75 Output Total 200 / 200 600 / 600 Balance 2492.75 / 2492.75 2319.75 / 2319.75 Laboratory Results 11/22/19 18:35: Urine Color Yellow, Urine Clarity Clear, Urine pH 5.0, Ur Specific [place] 1.025, Urine Protein Negative, Urine Glucose (UA) Normal, Urine Ketones Negative, Urine Occult Blood 10 H, Urine Nitrite Negative, Urine Bilirubin Negative, Urine Urobilinogen Normal, Ur Leukocyte Esterase 25 H, Urine RBC 0 SEEN, Urine WBC 0-5 SEEN, Ur Squamous Epith Cells 5-10 SEEN, Urine Bacteria 1+, Urine Mucus 0 SEEN 11/22/19 18:35: Urine Opiates Screen NEGATIVE, Urine Methadone Screen NEGATIVE, Ur Barbiturates Screen NEGATIVE, Ur Phencyclidine Scrn NEGATIVE, Ur Amphetamines Screen NEGATIVE, U Methamphetamin-MDMA NEGATIVE, U Benzodiazepines Scrn NEGATIVE, Urine Cocaine Screen NEGATIVE, U Cannabinoids Screen NEGATIVE, Ur Drug Screen Comment 11/22/19 18:50: WBC 11.9 H, RBC 4.31, Hgb 12.9, Hct 39.1, MCV 90.7, MCH 29.9, MCHC 33.0, RDW Std Deviation 38.9, RDW Coeff of Dave 11.8, Plt Count 392, MPV 10.7, Immature Gran % (Auto) 0.300, Neut % (Auto) 74.3 H, Lymph % (Auto) 17.3 L, [place] % (Auto) 6.0, Eos % (Auto) 1.3, Baso % (Auto) 0.8, Absolute Neuts (auto) 8.9 H, Absolute Lymphs (auto) 2.06, Nucleated RBC % 0 11/22/19 18:50: Sodium 141, Potassium 4.6, Chloride 109 H, Carbon Dioxide 29.0, Anion Gap 3 L, BUN 10, Creatinine 0.80, Estim Creat Clear Calc 78.30, Est GFR (MDRD) Af Amer 109, Est GFR (MDRD) Non-Af 90, BUN/Creatinine Ratio 12.5, Glucose 90, Calcium 9.0 11/22/19 18:50: Serum , Qual NEGATIVE 11/22/19 18:50: Total Bilirubin 0.20, Direct Bilirubin 0.08, AST 15, ALT 18, Alkaline Phosphatase 67, Total Protein 7.4, Albumin 3.8, Globulin 3.6 11/22/19 18:50: Lipase 2607 H 11/22/19 18:50: Ethyl Alcohol < 3.0 11/23/19 05:40: WBC 7.6, RBC 3.41 L, Hgb 10.3 L, Hct 31.2 L, MCV 91.5, MCH 30.2, MCHC 33.0, RDW Std Deviation 39.9, RDW Coeff of Dave 11.9, Plt Count 291, MPV 10.9, Immature Gran % (Auto) 0.300, Neut % (Auto) 64.1, Lymph % (Auto) 27.5, [place] % (Auto) 6.0, Eos % (Auto) 1.4, Baso % (Auto) 0.7, Absolute Neuts (auto) 4.9, Absolute Lymphs (auto) 2.10, Nucleated RBC % 0 11/23/19 05:40: Sodium 142, Potassium 3.7, Chloride 115 H, Carbon Dioxide 24.0, Anion Gap 3 L, BUN 8, Creatinine 0.51 L, Estim Creat Clear Calc 128.73, Est GFR (MDRD) Af Amer 182, Est GFR (MDRD) Non-Af 151, BUN/Creatinine Ratio 15.7, Glucose 81, Calcium 7.1 L, Total Bilirubin 0.20, AST 13 L, ALT 15, Alkaline Phosphatase 53, Total Protein 5.5 L, Albumin 2.8 L, Globulin 2.7, Albumin/Globulin Ratio 1.0, Triglycerides 143, Cholesterol 100, LDL Cholesterol 43, VLDL Cholesterol 29, HDL Cholesterol 28 L, Lipase 1218 H Current Medications Acetaminophen (Tylenol) 650 mg PO Q6H PRN PRN PRN Reason: Pain Score 1-10/Temp > 100.7 F Al Hydroxide/Mg Hydroxide (Mylanta Ii) 30 ml PO Q6H PRN PRN PRN Reason: Gastric Burning Albuterol Sulfate (Ventolin Aerosols) 2.5 mg INHALATION Q2H PRN PRN PRN Reason: Dyspnea, wheezing Guaifenesin (Robitussin) 20 ml PO Q4H PRN PRN PRN Reason: COUGH Hydralazine HCl (Apresoline Iv) 10 mg IV Q4H PRN PRN PRN Reason: SBP > 160 Sodium Chloride () 1,000 mls @ 75 mls/hr IV .[id number] [facility] Last Infusion: 11/23/19 10:57 Dose: 0 mls/hr Documented by: Pantoprazole Sodium 40 mg/ (Sodium Chloride) 110 mls @ 330 mls/hr IV Q12 [facility] Last Infusion: 11/23/19 09:44 Dose: Infused Documented by: Sodium Chloride () 250 mls @ 15 mls/hr IV .[id number] PRN PRN Reason: Saline Flush Sodium Chloride () 250 mls @ 15 mls/hr IV .[id number] PRN PRN Reason: Additional IVPB Infusion Ketorolac Tromethamine (Toradol (Bkc)) 30 mg IV Q8 [facility] Stop: 11/24/19 14:01 Last Admin: 11/23/19 05:37 Dose: 30 mg Documented by: Magnesium Hydroxide (Milk Of Magnesia) 30 ml PO DAILY PRN PRN PRN Reason: Constipation Morphine Sulfate () 4 mg IV Q3H PRN PRN PRN Reason: Pain Score 6-10/10 Last Admin: 11/23/19 06:53 Dose: 4 mg Documented by: Neomycin/Polymyxin/Dexamethasone (Maxitrol) 1 drop LEFT EYE Q3H [facility] Last Admin: 11/23/19 10:56 Dose: 1 drop Documented by: Ondansetron HCl (Zofran) 4 mg IV Q6H PRN PRN PRN Reason: NAUSEA/VOMITING Last Admin: 11/23/19 03:59 Dose: 4 mg Documented by: Oxycodone HCl (Oxyir) 5 mg PO Q4H PRN PRN PRN Reason: Pain Score 4-5/10 Prochlorperazine Edisylate (Compazine Iv) 5 mg IV Q4H PRN PRN PRN Reason: Breakthrough nausea/vomiting Psyllium Hydrophilic Mucilloid (Metamucil) 1 packet PO DAILY PRN PRN PRN Reason: Constipation Senna/Docusate Sodium (Senokot-S, Emma-Colace) 2 tablet PO BID PRN PRN PRN Reason: Constipation Sodium Chloride () 10 - 40 ml IV UD PRN PRN Reason: SALINE FLUSH Last Admin: 11/23/19 06:51 Dose: 10 ml Documented by: Temazepam (Restoril) 15 mg PO QHS PRN PRN PRN Reason: INSOMNIA Throat Lozenges (Cepacol Sore Throat Lozenge) 1 lozenge MUCOUS MEM Q2H PRN PRN PRN Reason: SORE THROAT STROKE Vital Signs/Narrative: Vital Signs Temp Pulse Resp BP Pulse Ox 11/23/19 09:30 98.6 F 64 16 106/52 L 100 Medical Necessity - Tobacco Use Smoking Status: Former smoker Tobacco Use: Vapor Assessment/Plan All Active Problems Pancreatitis (Acute) Patient is a 29-year-old lady admitted with abdominal pain 1. Acute pancreatitis ?Of undetermined etiology. Admitted to regular nursing floor managed conservatively with bowel rest pain meds as well as antinausea medications. CT of the abdomen obtained on admission demonstrated Fatty stranding noted in the region of the pancreatic tail, suspicious for pancreatitis. 2. Still with BMI of 33.7 ?Weight loss advised 3. Tobacco dependence - Counseled on cessation, offered nicotine patch for tobacco cravings 4. DVT prophylaxis ?Low risk Inpatient E&M: 08926 [facility] L2
[2019-11-23] MEDS: Senna/Docusate Sodium 1 Tablet 2 TABLET PO (15:02)
[2019-11-23 15:04] VITALS: BP 116/69; PULSE 74; RESP 16; TEMP 37; O2SAT 100
[2019-11-23] MEDS: Magnesium Hydroxide 30 ML UDC PO (19:08)
[2019-11-23] MEDS: Acetaminophen 325 MG Tablet 650 MG PO (20:47)
[2019-11-23 21:00] VITALS: BP 118/51; PULSE 83; RESP 16; TEMP 36.8; O2SAT 100
[2019-11-24] MEDS: Neomycin/Polymyxin/Dexameth 5ML OPTH.BTL 1 DRP LEFT EYE ×4 (01:08→09:51)
[2019-11-24] MEDS: Ketorolac 30 MG/ML Syringe IV (06:10)
[2019-11-24] MEDS: 0.9% Saline Lock 10 ML Syringe IV (06:11)
[2019-11-24 06:25] VITALS: BP 110/61; PULSE 76; RESP 16; TEMP 36.6; O2SAT 100
--- NOTE | 2019-11-24 07:20 | PCM.PN.HOSP ---
Patient Problems: Active and Suspected Problems Pancreatitis (Acute) Reason for Visit: Acute pancreatitis Subjective: Patient seen abdominal pain improved tolerating regular diet plan is for patient to be discharged home this morning Objective: GENERAL: cooperative HEENT: Atraumatic; EYES; Anicteric, Normal Conjunctiva NECK; supple, normal thyroid, RESPIRATORY: Diminished to auscultation CARDIOVASCULAR: Regular S1 S2, GI: soft, normoactive bowel sounds, : No Renal angle tenderness; EXTREMITIES: No edema, no clubbing, MUSCULOSKELETAL: no muscle waisting NEURO: Awake; no lateralizing signs. SKIN: No Rash PSYCH; Flat affect Vitals/I&O's: Vital Signs Temp Pulse Resp BP Pulse Ox 98 F 76 16 110/61 100 11/24/19 06:25 11/24/19 06:25 11/24/19 06:25 11/24/19 06:25 11/24/19 06:25 Oxygen Delivery Method Room Air Weight: 83.6 kg Body Mass Index (BMI) 33.7 Intake and Output for Last 24 Hours 11/22/19 11/23/19 11/24/19 23:59 23:59 23:59 Intake Total 2692.75 / 2692.75 4357.25 / 4357.25 800 / 800 Output Total 200 / 200 2049 / 2050 Balance 2492.75 / 2492.75 2307.25 / 2307.25 800 / 800 Current Medications Acetaminophen (Tylenol) 650 mg PO Q6H PRN PRN PRN Reason: Pain Score 1-10/Temp > 100.7 F Last Admin: 11/23/19 20:47 Dose: 650 mg Documented by: Al Hydroxide/Mg Hydroxide (Mylanta Ii) 30 ml PO Q6H PRN PRN PRN Reason: Gastric Burning Albuterol Sulfate (Ventolin Aerosols) 2.5 mg INHALATION Q2H PRN PRN PRN Reason: Dyspnea, wheezing Guaifenesin (Robitussin) 20 ml PO Q4H PRN PRN PRN Reason: COUGH Hydralazine HCl (Apresoline Iv) 10 mg IV Q4H PRN PRN PRN Reason: SBP > 160 Pantoprazole Sodium 40 mg/ (Sodium Chloride) 110 mls @ 330 mls/hr IV Q12 [facility] Last Infusion: 11/23/19 21:07 Dose: Infused Documented by: Sodium Chloride () 250 mls @ 15 mls/hr IV .[id number] PRN PRN Reason: Saline Flush Sodium Chloride () 250 mls @ 15 mls/hr IV .[id number] PRN PRN Reason: Additional IVPB Infusion Ketorolac Tromethamine (Toradol (Bkc)) 30 mg IV Q8 [facility] Stop: 11/24/19 14:01 Last Admin: 11/24/19 06:10 Dose: 30 mg Documented by: Magnesium Hydroxide (Milk Of Magnesia) 30 ml PO DAILY PRN PRN PRN Reason: Constipation Last Admin: 11/23/19 19:08 Dose: 30 ml Documented by: Morphine Sulfate () 4 mg IV Q3H PRN PRN PRN Reason: Pain Score 6-10/10 Last Admin: 11/23/19 06:53 Dose: 4 mg Documented by: Neomycin/Polymyxin/Dexamethasone (Maxitrol) 1 drop LEFT EYE Q3H [facility] Last Admin: 11/24/19 06:10 Dose: 1 drop Documented by: Ondansetron HCl (Zofran) 4 mg IV Q6H PRN PRN PRN Reason: NAUSEA/VOMITING Last Admin: 11/23/19 03:59 Dose: 4 mg Documented by: Oxycodone HCl (Oxyir) 5 mg PO Q4H PRN PRN PRN Reason: Pain Score 4-5/10 Prochlorperazine Edisylate (Compazine Iv) 5 mg IV Q4H PRN PRN PRN Reason: Breakthrough nausea/vomiting Psyllium Hydrophilic Mucilloid (Metamucil) 1 packet PO DAILY PRN PRN PRN Reason: Constipation Senna/Docusate Sodium (Senokot-S, Emma-Colace) 2 tablet PO BID PRN PRN PRN Reason: Constipation Last Admin: 11/23/19 15:02 Dose: 2 tablet Documented by: Sodium Chloride () 10 - 40 ml IV UD PRN PRN Reason: SALINE FLUSH Last Admin: 11/24/19 06:11 Dose: 10 ml Documented by: Temazepam (Restoril) 15 mg PO QHS PRN PRN PRN Reason: INSOMNIA Throat Lozenges (Cepacol Sore Throat Lozenge) 1 lozenge MUCOUS MEM Q2H PRN PRN PRN Reason: SORE THROAT STROKE Vital Signs/Narrative: Vital Signs Temp Pulse Resp BP Pulse Ox 11/24/19 06:25 98 F 76 16 110/61 100 Medical Necessity - Tobacco Use Smoking Status: Former smoker Tobacco Use: Vapor Assessment/Plan All Active Problems Pancreatitis (Acute) Patient is a 29-year-old lady admitted with abdominal pain 1. Acute pancreatitis ?Of undetermined etiology. Admitted to regular nursing floor managed conservatively with bowel rest pain meds as well as antinausea medications. CT of the abdomen obtained on admission demonstrated Fatty stranding noted in the region of the pancreatic tail, suspicious for pancreatitis. 2. Obesity with BMI of 33.7 ?Weight loss advised 3. DVT prophylaxis ?Low risk
[2019-11-24 08:29] LABS: AST(SGOT) 13 U/L (15-37); Alanine Aminotransfer ALT/SGPT 18 U/L (13-56); Albumin, Serum 3.3 g/dL (3.2-5.0); Alkaline Phosphatase 64 U/L (45-117); Anion Gap 4 (5-15); BUN 6 mg/dL (7-18); BUN/Creat Ratio 9.8 RATIO (10-20); Calcium,Total 8.6 mg/dL (8.5-10.1); Chloride 109 mmol/L (98-107); Creatinine, Serum 0.61 mg/dL (0.55-1.02); EST Glomerular Filtration Rate 122 mL/min (>60); Est Glom Filt Rate - Afr Amer 148 mL/min (>60); Estimated Creatinine Clearance 107.63 ml/min; Globulin 3.2 g/dL (2.2-4.2); Glucose 76 mg/dL (74-106); Lipase 382 U/L (73-393); Potassium 3.8 mmol/L (3.5-5.1); Protein, Total 6.5 g/dL (6.4-8.2); Sodium Level 140 mmol/L (136-145)
[2019-11-24 08:40] VITALS: BP 111/52; PULSE 82; RESP 16; TEMP 37; O2SAT 100
[2019-11-24] MEDS: Acetaminophen 325 MG Tablet 650 MG PO (09:51)
--- NOTE | 2019-11-24 09:59 | PCM.DC ---
- Discharge Diagnoses Current Active Problems: Current Active and Chronic Problems Pancreatitis (Acute) Exercise-induced asthma (Chronic) Vapes nicotine containing substance (Chronic) Tobacco use (Chronic) Obesity (BMI 30-39.9) (Chronic) You will use the following diet at home:: No restrictions Your food should be the consistency of: Regular Allergies/Adverse Reactions: Allergies sulfamethoxazole [From Bactrim] Allergy (Verified 11/22/19 18:04) Vomiting trimethoprim [From Bactrim] Allergy (Verified 11/22/19 18:04) Vomiting Medications to take at Discharge Carboxymethyl/Gly/Poly80/Pf [Refresh Optive Alec-3 Drops] 1 drp LEFT EYE Q1H PRN 11/22/19 Maxitrol Eye Drops 1 drp LEFT EYE Q3H 11/22/19 Primary Care Physician: Ibeth Elizondo [employer], [employer]-C [Primary Care Provider] - Please follow up with your Primary Care Physician in: in 1-2 weeks Test Results: Test results from this visit will be discussed in further detail at your follow-up appointment, if applicable. Proposed Discharge Date: 11/24/19
--- NOTE | 2019-11-24 10:00 | PCM.DC.SUM ---
Discharge Date and Diagnosis - Problem List Patient Problems: Active and Suspected Problems Pancreatitis (Acute) Date of Admission: 11/22/19 Date of Discharge: 11/24/19 - Primary Discharge Diagnosis Acute Problems: Active Problems Pancreatitis (Acute) - Secondary Discharge Diagnosis Chronic Problems: Chronic Problems Exercise-induced asthma (Chronic) Vapes nicotine containing substance (Chronic) Tobacco use (Chronic) Obesity (BMI 30-39.9) (Chronic) Hospital Course and Treatment Summary of Care Provided: Patient is a 29-year-old lady admitted with abdominal pain 1. Acute pancreatitis ?Of undetermined etiology. Admitted to regular nursing floor managed conservatively with bowel rest pain meds as well as antinausea medications. CT of the abdomen obtained on admission demonstrated Fatty stranding noted in the region of the pancreatic tail, suspicious for pancreatitis. Patient was managed symptomatically with improvement in his symptoms discharged home 2 days after her admission in stable condition 2. Obesity with BMI of 33.7 ?Weight loss advised 3. DVT prophylaxis ?Low risk Patient Problems: Active and Suspected Problems Pancreatitis (Acute) - Physical Exam Vitals/I&O's: Vital Signs Temp Pulse Resp BP Pulse Ox 98.6 F 82 16 111/52 L 100 11/24/19 08:40 11/24/19 08:40 11/24/19 08:40 11/24/19 08:40 11/24/19 08:40 Oxygen Delivery Method Room Air Weight: 83.6 kg Body Mass Index (BMI) 33.7 Intake and Output for Last 24 Hours 11/22/19 11/23/19 11/24/19 23:59 23:59 23:59 Intake Total 2692.75 / 2692.75 4357.25 / 4357.25 800 / 800 Output Total 200 / 200 2049 / 2049 Balance 2492.75 / 2492.75 2307.25 / 2307.25 800 / 800 General: Alert HEENT: Atraumatic Neck: Supple Neurological: Neuro grossly intact Psych/Mental Status: Normal Affect Laboratory Results 11/24/19 07:50: Sodium 140, Potassium 3.8, Chloride 109 H, Carbon Dioxide 27.0, Anion Gap 4 L, BUN 6 L, Creatinine 0.61, Estim Creat Clear Calc 107.63, Est GFR (MDRD) Af Amer 148, Est GFR (MDRD) Non-Af 122, BUN/Creatinine Ratio 9.8 L, Glucose 76, Calcium 8.6, Total Bilirubin 0.60, AST 13 L, ALT 18, Alkaline Phosphatase 64, Total Protein 6.5, Albumin 3.3, Globulin 3.2, Albumin/Globulin Ratio 1.0, Lipase 382 Current Medications Acetaminophen (Tylenol) 650 mg PO Q6H PRN PRN PRN Reason: Pain Score 1-10/Temp > 100.7 F Last Admin: 11/24/19 09:51 Dose: 650 mg Documented by: Al Hydroxide/Mg Hydroxide (Mylanta Ii) 30 ml PO Q6H PRN PRN PRN Reason: Gastric Burning Albuterol Sulfate (Ventolin Aerosols) 2.5 mg INHALATION Q2H PRN PRN PRN Reason: Dyspnea, wheezing Guaifenesin (Robitussin) 20 ml PO Q4H PRN PRN PRN Reason: COUGH Hydralazine HCl (Apresoline Iv) 10 mg IV Q4H PRN PRN PRN Reason: SBP > 160 Pantoprazole Sodium 40 mg/ (Sodium Chloride) 110 mls @ 330 mls/hr IV Q12 [facility] Last Infusion: 11/23/19 21:07 Dose: Infused Documented by: Sodium Chloride () 250 mls @ 15 mls/hr IV .[id number] PRN PRN Reason: Saline Flush Sodium Chloride () 250 mls @ 15 mls/hr IV .[id number] PRN PRN Reason: Additional IVPB Infusion Ketorolac Tromethamine (Toradol (Bkc)) 30 mg IV Q8 [facility] Stop: 11/24/19 14:01 Last Admin: 11/24/19 06:10 Dose: 30 mg Documented by: Magnesium Hydroxide (Milk Of Magnesia) 30 ml PO DAILY PRN PRN PRN Reason: Constipation Last Admin: 11/23/19 19:08 Dose: 30 ml Documented by: Morphine Sulfate () 4 mg IV Q3H PRN PRN PRN Reason: Pain Score 6-10/10 Last Admin: 11/23/19 06:53 Dose: 4 mg Documented by: Neomycin/Polymyxin/Dexamethasone (Maxitrol) 1 drop LEFT EYE Q3H [facility] Last Admin: 11/24/19 09:51 Dose: 1 drop Documented by: Ondansetron HCl (Zofran) 4 mg IV Q6H PRN PRN PRN Reason: NAUSEA/VOMITING Last Admin: 11/23/19 03:59 Dose: 4 mg Documented by: Oxycodone HCl (Oxyir) 5 mg PO Q4H PRN PRN PRN Reason: Pain Score 4-5/10 Prochlorperazine Edisylate (Compazine Iv) 5 mg IV Q4H PRN PRN PRN Reason: Breakthrough nausea/vomiting Psyllium Hydrophilic Mucilloid (Metamucil) 1 packet PO DAILY PRN PRN PRN Reason: Constipation Senna/Docusate Sodium (Senokot-S, Emma-Colace) 2 tablet PO BID PRN PRN PRN Reason: Constipation Last Admin: 11/23/19 15:02 Dose: 2 tablet Documented by: Sodium Chloride () 10 - 40 ml IV UD PRN PRN Reason: SALINE FLUSH Last Admin: 11/24/19 06:11 Dose: 10 ml Documented by: Temazepam (Restoril) 15 mg PO QHS PRN PRN PRN Reason: INSOMNIA Throat Lozenges (Cepacol Sore Throat Lozenge) 1 lozenge MUCOUS MEM Q2H PRN PRN PRN Reason: SORE THROAT Discharge Diet: No Restrictions Discharge Activity: Return to Normal Activity Home Medications: Medications to take at Discharge Carboxymethyl/Gly/Poly80/Pf [Refresh Optive Alec-3 Drops] 1 drp LEFT EYE Q1H PRN 11/22/19 Maxitrol Eye Drops 1 drp LEFT EYE Q3H 11/22/19 Primary Care Physician: Ibeth Elizondo DIRECTOR ELECTRONICS, DIRECTOR ELECTRONICS-C [Primary Care Provider] - Please follow up with your Primary Care Physician in: in 1-2 weeks Disposition: Home Minutes spent on discharge:: 32 Patient Condition:: Stable Medical Necessity - Tobacco Use Smoking Status: Former smoker Tobacco Use: Vapor Meaningful Use Info Meaningful Use Diagnoses (Choose all that apply): None applicable Inpatient E&M: [id number] [facility]
== END 2019-11-24 10:58 | disposition home or self-care (01) | DRG 440 ==
LOC: ED 21:25 → MS3 22:02
PROVIDERS: Admitting Provider Family Medicine; Emergency Provider Emergency Medicine; PCP Nurse Practitioner Family; Referring Provider Family Medicine; Visit Provider Internal Medicine
DX: K85.90 Acute pancreatitis without necrosis or infection, unspecified (principal); J45.990 Exercise induced bronchospasm; Z68.35 Body mass index [BMI] 35.0-35.9, adult; E66.9 Obesity, unspecified; F17.290 Nicotine dependence, other tobacco product, uncomplicated; K57.30 Diverticulosis of large intestine without perforation or abscess without bleeding
CPT/HCPCS: 36415; 74176; 76705; 80048; 80053; 80061; 80076; 80307; 80320; 81001; 83690; 84703; 85025; 99284; 99406; J7030; A4216; G0480; J2405